=== PATIENT | female | born 2000 | race Caucasian/White ===

== ENCOUNTER 2021-01-19 15:00 | Inpatient (IN) | payer OTHER ==
[2021-01-21 10:34] VITALS: BMI 46.4
[2021-01-22] MEDS ORDERED: Lidocaine 1% w/Epinephrine 1:100K 20 ML VIAL ONE (06:35)
[2021-01-22] MEDS ORDERED: Bupivacaine 0.25% HCL 30 ML VIAL ONE (06:35)
[2021-01-22] MEDS ORDERED: Heparin 5,000 UNITS/ML VIAL ONE (06:39)
[2021-01-22] MEDS ORDERED: Fentanyl 100 MCG/2 ML VIAL ONE ×2 (06:57→09:14)
[2021-01-22] MEDS ORDERED: Midazolam HCl 2 mg/2 ml Vial ONE ×2 (06:57→07:28)
[2021-01-22] MEDS ORDERED: Scopolamine 1.5 mg/72 hour Patch ONE (07:24)
[2021-01-22] MEDS ORDERED: Glycopyrrolate 0.2 MG/ML 5 ML SYRINGE ONE (07:39)
[2021-01-22] MEDS ORDERED: Lidocaine 1% PF 5 ML VIAL ONE (07:39)
[2021-01-22] MEDS ORDERED: Rocuronium Bromide 10 MG/ML (10ML VIAL) ONE (07:39)
[2021-01-22] MEDS ORDERED: Ondansetron PF 4 MG/2 ML Vial ONE (07:39)
[2021-01-22] MEDS ORDERED: Ketorolac Tromethamine 30 MG/ML VIAL ONE (07:39)
[2021-01-22] MEDS ORDERED: ePHEDrine Sulfate 50 MG/10 ML VIAL ONE (07:39)
[2021-01-22] MEDS ORDERED: PROPOFOL 200 MG/20 ML VIAL ONE (07:39)
[2021-01-22] MEDS ORDERED: Dexamethasone 20 MG/5 ML VIAL ONE (07:39)
[2021-01-22] MEDS ORDERED: Promethazine HCl 25 MG/ML VIAL IM PRN ×3 (08:56→09:49)
[2021-01-22] MEDS ORDERED: Promethazine HCl 25 MG/ML VIAL SLOW IVP PRN (08:56)
[2021-01-22] MEDS ORDERED: Ondansetron HCl/PF 4 MG/2 ML Vial IVP PRN (08:56)
[2021-01-22] MEDS ORDERED: fentaNYL Citrate/PF 2,000 MCG in Sodium Chloride 0.9% 60 ML IV PRN (09:03)
[2021-01-22] MEDS ORDERED: diphenhydrAMINE 50 MG/ML VIAL IM PRN (09:03)
[2021-01-22] MEDS ORDERED: Zolpidem Tartrate 5 MG TAB PO PRN (09:03)
[2021-01-22] MEDS ORDERED: Naloxone HCl 0.4 mg/ml Vial IV PRN (09:03)
[2021-01-22] MEDS ORDERED: diphenhydrAMINE 50 MG/ML VIAL IVP PRN ×2 (09:03→09:49)
[2021-01-22] MEDS ORDERED: Ondansetron PF 4 MG/2 ML Vial IVP PRN ×2 (09:03→09:49)
[2021-01-22] MEDS ORDERED: Communication Order-Pharmacy FS SCH (09:15)
[2021-01-22] MEDS ORDERED: Dextrose 5% in Water 1,000 ML IV PRN (09:49)
[2021-01-22] MEDS ORDERED: Dextrose 50% Abboject 50 ML SYRINGE SLOW IVP PRN (09:49)
[2021-01-22] MEDS ORDERED: Hydrocodone-Acetamin 15 ML UDCUP PO PRN (09:49)
[2021-01-22] MEDS ORDERED: hydrALAZINE 20 MG/ML VIAL SLOW IVP PRN (09:49)
[2021-01-22] MEDS ORDERED: Sodium Chloride 0.9% (PF) 10 ML VIAL FS PRN (10:15)
[2021-01-22] MEDS ORDERED: Pantoprazole 40 MG VIAL IVP SCH (10:15)
[2021-01-22] MEDS ORDERED: Venlafaxine HCl XR 75 MG CAP PO SCH (10:15)
[2021-01-22] MEDS: D5 1/2 NS w/20 mEq KCL 1,000 ML IV SCH ×2 (10:47→17:10)
[2021-01-22] MEDS: diphenhydrAMINE 25 MG CAP PO PRN ×2 (16:21→19:22)
[2021-01-22] MEDS ORDERED: Enoxaparin Sodium 40 MG/0.4 ML SYRINGE SC SCH (21:00)
[2021-01-23] MEDS: D5 1/2 NS w/20 mEq KCL 1,000 ML IV SCH ×2 (02:01→08:03)
[2021-01-23 06:04] LABS: #Lymphocytes 1.3 thou/uL (1.20-3.40); #Monocytes 0.7 thou/uL (0.11-0.59); #Neutrophils 6.6 thou/uL (1.40-6.50); %Eosinophils 0.1 % (0.0-10.0); %Lymphocytes 15.1 % (21.0-51.0); %Monocytes 7.8 % (0.0-10.0); %Neutrophils 76.9 % (42.0-75.0); Hemoglobin 11.8 g/dL (12.0-16.0); Mean Corpuscular HGB CONC 31.5 g/dL (32.0-36.0); Mean Corpuscular Hemoglobin 29.6 pg (27.0-31.0); Mean Corpuscular Volume 93.9 fL (78.0-98.0); Mean Platelet Volume 8.1 fL (7.4-10.4); Platelet Count 236 thou/uL (130-400); RBC Distribution Width 12.1 % (11.5-14.5); Red Blood Cell (RBC) Count 3.97 mill/uL (4.20-5.40); White Blood Cell (WBC) Count 8.6 thou/uL (4.8-10.8)
[2021-01-23 06:17] LABS: Anion Gap 9 mmol/L (10-20); BUN (Urea Nitrogen) 5 mg/dL (7.0-18.7); Calc. Creatinine Clearance 269 mL/min (70-130); Calcium 8.9 mg/dL (7.8-10.44); Carbon Dioxide 29 mmol/L (22-29); Chloride 107 mmol/L (98-107); Glucose 101 mg/dL (70-105); Potassium 4.3 mmol/L (3.5-5.1); Sodium 141 mmol/L (136-145)
[2021-01-23] MEDS: diphenhydrAMINE 25 MG CAP PO PRN ×2 (06:19→09:13)
[2021-01-23] MEDS: Hydrocodone-Acetamin 15 ML UDCUP PO PRN ×2 (08:02→12:53)
[2021-01-23] MEDS ORDERED: Venlafaxine HCl XR 75 MG CAP PO SCH (09:00)
[2021-01-23] MEDS ORDERED: Pantoprazole 40 MG VIAL IVP SCH (09:00)
[2021-01-23 12:32] VITALS: BP 143/86; TEMP 98.1
== END 2021-01-23 13:20 | disposition home or self-care (01) | DRG 621 ==
LOC: SURG A 01-22 05:58 → SURG B 01-22 10:21
PROVIDERS: ADMIT Surgery; ATTEND Surgery
PROC: 0DB64Z3 Excision of Stomach, Percutaneous Endoscopic Approach, Vertical (ICD-10-PCS; principal; 2021-01-22)
DX: E66.01 Morbid (severe) obesity due to excess calories (principal); F41.9 Anxiety disorder, unspecified; J45.909 Unspecified asthma, uncomplicated; F32.9 Major depressive disorder, single episode, unspecified; F17.290 Nicotine dependence, other tobacco product, uncomplicated; Z68.42 Body mass index [BMI] 45.0-49.9, adult
CPT/HCPCS: 36415; 80048; 85025; 88307; C9113; J0690; J1100; J1644; J1650; J1885; J2250; J2405; J2704; J3010; J3480; J3490; Q0163; S0020

== ENCOUNTER 2021-01-19 15:08 | Outpatient (CLI) | payer BC ==
[2021-01-19 18:05] LABS: ALT (SGPT) 20 U/L (8-55); AST (SGOT) 14 U/L (5-34); Albumin 4.5 g/dL (3.5-5.0); Alkaline Phosphatase 88 U/L (40-110); Anion Gap 16 mmol/L (10-20); BUN (Urea Nitrogen) 12 mg/dL (7.0-18.7); Bilirubin, Total 0.3 mg/dL (0.2-1.2); Calc. Creatinine Clearance 0 mL/min (70-130); Calcium 9.1 mg/dL (7.8-10.44); Carbon Dioxide 24 mmol/L (22-29); Chloride 104 mmol/L (98-107); Globulin 2.6 g/dL (2.4-3.5); Glucose 85 mg/dL (70-105); Protein, Total 7.1 g/dL (6.0-8.3); Sodium 140 mmol/L (136-145)
[2021-01-19 18:12] LABS: BHCG - Serum Negative (NEGATIVE); Pregs Control Background? CLEAR/WHITE (CLR/WHITE); Pregs Control Bar Appear? YES (CONTROL BAR)
[2021-01-19 18:34] LABS: #Monocytes 0.5 10x3/uL (0.0-1.1); #Neutrophils 4.3 10x3/uL (1.5-8.4); %Basophils 0.6 % (0.0-2.0); %Eosinophils 0.1 % (0.0-6.0); %Neutrophils 60.9 % (40.0-75.0); Hemoglobin 12.8 g/dL (12.0-15.5); Mean Corpuscular HGB CONC 32.4 g/dL (32.0-36.0); Mean Corpuscular Hemoglobin 30.2 pg (27.0-33.0); Mean Corpuscular Volume 93.2 fl (81.6-98.3); Mean Platelet Volume 10.9 fl (7.4-10.4); Platelet Count 263 10x3/uL (150-450); RBC Distribution Width 12.5 % (11.5-14.5); Red Blood Cell (RBC) Count 4.24 10x6/uL (3.90-5.03)
[2021-01-19 20:50] LABS: Hemoglobin A1c 5.1 % (4.0-6.0)
[2021-01-20 02:13] LABS: SARS-CoV-2 PCR by NAA Not Detected (NotDetected)
== END 2021-01-19 15:09 | disposition home or self-care (01) ==
LOC: LABBT 15:08
PROVIDERS: ATTEND Surgery
DX: Z01.818 Encounter for other preprocedural examination (principal); E66.01 Morbid (severe) obesity due to excess calories; Z20.822 Contact with and (suspected) exposure to COVID-19
CPT/HCPCS: 71046; 80053; 83036; 84703; 85025; 87635; 93005; 93010; U0003; U0005

== ENCOUNTER 2021-01-19 16:21 | Outpatient (CLI) | payer OTHER | END 2021-01-19 16:22 | disposition home or self-care (01) | LOC: DTY/OP 16:21 | PROVIDERS: ATTEND Surgery | DX: E66.01 Morbid (severe) obesity due to excess calories (principal) | CPT/HCPCS: 97802 ==

== ENCOUNTER 2021-02-12 09:38 | Day surgery (SDC) | payer BC ==
[2021-02-12] MEDS ORDERED: Sodium Chloride 0.9% 20 ML ONE (09:53)
[2021-02-12] MEDS ORDERED: Ondansetron PF 4 MG/2 ML Vial IVP PRN (09:54)
[2021-02-12] MEDS ORDERED: Multivitamins, Adult 10 ML, Thiamine HCl 100 MG in Sodium Chloride 0.9% 1,000 ML IV SCH (10:00)
[2021-02-12] MEDS ORDERED: Sodium Chloride 0.9% 1,000 ML IV SCH (10:00)
== END 2021-02-12 12:44 | disposition home or self-care (01) ==
LOC: ONC/OP 09:38
PROVIDERS: ATTEND Surgery
DX: E86.0 Dehydration (principal)
CPT/HCPCS: 96361; 96365; 96366; J2405; J3411; J7050

== ENCOUNTER 2021-02-25 14:39 | Day surgery (SDC) | payer BC ==
[2021-02-25] MEDS ORDERED: Ondansetron PF 4 MG/2 ML Vial IVP PRN ×2 (14:52→15:00)
[2021-02-25] MEDS ORDERED: Multivitamins, Adult 10 ML in Sodium Chloride 0.9% 1,000 ML IV SCH (15:00)
[2021-02-25] MEDS ORDERED: Sodium Chloride 0.9% 1,000 ML IV SCH ×2 (15:00)
[2021-02-25] MEDS ORDERED: Thiamine HCl 200 MG/2 ML VIAL SLOW IVP SCH (15:00)
[2021-02-25 15:22] VITALS: BP 120/62; TEMP 98.3
== END 2021-02-25 17:56 | disposition home or self-care (01) ==
LOC: ONC/OP 14:39
PROVIDERS: ATTEND Surgery
DX: E86.0 Dehydration (principal)
CPT/HCPCS: 96361; 96365; 96366; 96375; J2405; J3411